=== PATIENT | male | born 1975 | race Native Hawaiian/Other Pacific Islander ===

== ENCOUNTER 2019-11-12 22:34 | Emergency (ER) | payer MEDICAID ==
[~2019-11-12] VITALS: Ht 188 cm; Wt 111.6 kg
[2019-11-12 22:50] VITALS: BP 127/82
[2019-11-13 01:41] LABS: Basophils # (auto) 0 10 ^3/uL (0-0.2); Basophils % (auto) 0.6 % (0.0-2.0); Eosinophils # (auto) 0.2 10 ^3/uL (0-0.8); Eosinophils % (auto) 1.9 % (0.0-7.0); Hematocrit 55.6 % (41.0-53.0); Lymphocytes % (auto) 24.9 % (10.0-50.0); Mean Corpuscular Hgb Conc. 34.2 g/dL (32.0-36.0); Mean Corpuscular Volume 90.5 fL (80.0-100.0); Monocytes # (auto) 0.3 10 ^3/uL (0-1.3); Monocytes % (auto) 3.6 % (0.0-12.0); Neutrophils # (auto) 5.6 10 ^3/uL (1.6-8.6); Nucleated Red Blood Cells % 0.2 %; Platelet Count (auto) 231 10^3/uL (140-450); Red Blood Cells 6.15 10^6/uL (4.5-5.90); Red Cell Distribution Width 13.2 % (11.8-14.3); White Blood Cell 8.1 10^3/uL (4.4-10.8)
[2019-11-13 02:00] LABS: INR 1.09 (0.9-1.15); Partial Thromboplastin Time 28.5 sec (23.64-32.05)
[2019-11-13 02:01] LABS: Albumin 4.1 g/dL (3.4-5.0); Anion Gap 6 (5-15); Calcium 8.9 mg/dL (8.5-10.1); Carbon Dioxide 28 mmol/L (21-32); Chloride 107 mmol/L (98-107); Glucose 124 mg/dL (74-106); Magnesium 2.6 mg/dL (1.6-2.6); Potassium 3.6 mmol/L (3.5-5.1); Sodium 141 mmol/L (136-145)
[2019-11-13 02:05] LABS: Salicylate < 1.7 mg/dL (2.8-20.0)
[2019-11-13 02:06] LABS: Acetaminophen < 2.0 ug/mL (10-30)
[2019-11-13 02:08] LABS: Alanine Aminotransferase 53 U/L (16-61); Alkaline Phosphatase 102 U/L (45-117); Aspartate Aminotransferase 27 U/L (15-37); BUN/Creatinine Ratio 8.9; Bilirubin, Total 0.2 mg/dL (0.2-1.0); Blood Urea Nitrogen 8 mg/dL (7-18); GFR African American 118 mL/min; GFR Non-African American 97 mL/min; Total Protein 8.9 g/dL (6.4-8.2)
[2019-11-13] MEDS ORDERED: SODIUM CHLORIDE 0.9% 1,000 ML IV ONE (02:15)
[2019-11-13] MEDS ORDERED: ONDANSETRON HCL 4 MG/2 ML VIAL IV ONE (03:15)
== END 2019-11-13 04:52 | disposition left against medical advice (07) ==
LOC: ER 22:40
DX: K29.70 Gastritis, unspecified, without bleeding (principal); F10.129 Alcohol abuse with intoxication, unspecified; Y90.6 Blood alcohol level of 120-199 mg/100 ml
CPT/HCPCS: 36415; 71045; 80053; 80320; 80329; 83735; 84443; 84484; 85025; 85610; 85730; 93005; 99285; J7030